=== PATIENT | female | born 1960 | race Caucasian/White ===

== ENCOUNTER 2020-11-05 18:14 | Emergency (ER) | payer BC ==
[~2020-11-05] VITALS: Ht 157.5 cm; Wt 63.5 kg
[2020-11-05 18:20] VITALS: BP_SYST 123
[2020-11-05] MEDS ORDERED: predniSONE 20 MG TABLET PO ONE (18:45)
[2020-11-05] MEDS ORDERED: DIPHENHYDRAMINE INJ 50 MG/ML VIAL IM ONE (18:45)
[2020-11-05] MEDS ORDERED: DIPHENHYDRAMINE INJ 50 MG/ML VIAL ONE (18:51)
[2020-11-05 19:57] VITALS: BP_SYST 123
== END 2020-11-05 19:57 | disposition home or self-care (01) ==
LOC: SED 18:14
DX: L30.9 Dermatitis, unspecified (principal)
CPT/HCPCS: 96372; 99283; J1200; J7512